=== PATIENT | female | born 1965 | race Caucasian/White ===

== ENCOUNTER → 2016-10-11 | Outpatient (CLI) | payer MEDICAID ==
[~2016-10-11] MED LIST: AMLO10TA2 PO; ESTR0.62 VAGINAL; GABA100C4 PO; HYDR25TA5 PO; OMEP40CA2 PO; RANI150T PO
[2016-10-11 12:46] LABS: AUTOMATED NEUTROPHIL # 4.9 TH/MM3 (1.8-7.7); BASOPHIL % 0.3 % (0.0-2.0); EOSINOPHIL # 0.3 TH/MM3 (0-0.4); EOSINOPHIL % 3.6 % (0.0-4.0); HEMATOCRIT 37.5 % (35.0-46.0); HEMO FLAGS DIFF FINAL; LYMPH % 21.2 % (9.0-44.0); LYMPHOCYTE # 1.5 TH/MM3 (1.0-4.8); MEAN CELL VOLUME 85.8 FL (80.0-100.0); MEAN CORPUSCULAR HEMOGLOBIN 28.9 PG (27.0-34.0); MEAN CORPUSCULAR HGB CONC 33.7 % (32.0-36.0); MONO % 6.1 % (0.0-8.0); NEUT % 68.8 % (16.0-70.0); PLATELET COUNT 270 TH/MM3 (150-450); RED BLOOD COUNT 4.37 MIL/MM3 (4.00-5.30); RED CELL DISTRIBUTION WIDTH 14.1 % (11.6-17.2); WHITE BLOOD COUNT 7.1 TH/MM3 (4.0-11.0)
[2016-10-11 13:00] LABS: BACTERIA, URINE OCC /hpf; BLOOD, URINE TRACE (NEG); COMMENT (UR) CULT NOT INDICATED; CULTURE IF INDICATED CULT NOT INDICATED; GLUCOSE,URINE NEG (NEG); KETONE, URINE NEG (NEG); MUCUS URINE FEW /lpf (OCC); NITRITE,URINE NEG (NEG); PH, URINE 6.5 (5.0-8.5); SQUAMOUS EPITHELIAL CELL URINE 1 /hpf (0-5); URINE COLOR LIGHT-YELLOW (YELLW/STRAW)
[2016-10-11 13:10] LABS: ANION GAP 6 MEQ/L (5-15); AST (GOT) 20 U/L (15-37); BICARBONATE 31.6 MEQ/L (21.0-32.0); BLOOD UREA NITROGEN 10 MG/DL (7-18); CHLORIDE 102 MEQ/L (98-107); GLOMERULAR FILTRATION RATE 75 ML/MIN (>89); GLUCOSE,FASTING 95 MG/DL (74-99); POTASSIUM 3.7 MEQ/L (3.5-5.1); SODIUM (NA) 140 MEQ/L (136-145)
[2016-10-11 13:21] LABS: ALKALINE PHOSPHATASE 106 U/L (45-117); ALT (GPT) 33 U/L (10-53); TOTAL BILIRUBIN ADULT 0.3 MG/DL (0.2-1.0)
== END ==
LOC: CPRE 11:21
PROVIDERS: ATTEND Obstetrics & Gynecology Gynecology
DX: Z01.812 Encounter for preprocedural laboratory examination (principal); N81.6 Rectocele; N81.89 Other female genital prolapse
CPT/HCPCS: 36415; 80053; 81001; 85025

== ENCOUNTER → 2016-10-17 | Day surgery (SDC) | payer MEDICAID ==
--- NOTE | 2016-10-11 14:05 | MH ---
cc: LELAND SHUKLA MD DATE OF ADMISSION: 10/17/2016 1965 REASON FOR ADMISSION Scheduled for admission on October 17 for pelvic repair. HISTORY OF PRESENT ILLNESS The patient is a 52-year-old female, 4, para 2 with issues with pelvic organ prolapse. She has had a prior hysterectomy and BSO. She has been using vaginal estrogen. She has not had much success with pessary and wants to proceed with surgical treatment. The patient has issues with pelvic floor weakness. She has had a negative MRI. Her physical exam is consistent with stage II pelvic organ prolapse with posterior compartment predominant and loss of perineal body. PAST MEDICAL HISTORY The patient's medical history is negative for heart, lung, liver disease. She does have: 1. Hypertension. 2. Gastroesophageal reflux disease. MEDICATION 1. Hydrochlorothiazide 25 mg one p.o. daily. 2. Amlodipine 10 mg daily. 3. Omeprazole 40 mg daily. 4. Zantac 150 mg daily. ALLERGIES AMPICILLIN, BACTRIM, CIPRO. She has used cephalosporins in the past without difficulty. FAMILY HISTORY Noncontributory. OBSTETRICAL HISTORY Two vaginal deliveries. GYNECOLOGIC HISTORY Notable for hysterectomy for benign condition. SOCIAL HISTORY She does not smoke cigarettes, use alcohol or drugs. She has good social support. REVIEW OF SYSTEMS As above. No chest pain, orthopnea, PND. No nausea, vomiting or chills. No vaginal bleeding or discharge. No incontinence issues. She does have some pelvic floor weakness and noted some difficulty with stairs but otherwise no significant neurologic issues. Remainder of 14-point review negative. PHYSICAL EXAMINATION VITAL SIGNS: She is afebrile. Vital signs stable. Blood pressure is 120/70, height is 5 feet 3 inches, weight 192, BMI is 34. GENERAL: Patient is alert and oriented, in no acute distress. No sign of cognitive dysfunction or depression. HEENT: Within normal limits. NECK: Supple. No JVD. CHEST: Clear. HEART: Regular rate and rhythm. ABDOMEN: Soft, nontender. No hepatosplenomegaly. No CVA tenderness. PELVIC: Exam in the office shows POP-Q score: Ap is 0. Perineal body is 1. Further exam under anesthesia. EXTREMITIES: Normal skin without rashes. NEURO EXAM: Nonfocal. No DVT signs. ASSESSMENT Patient with posterior compartment prolapse, loss of perineal body, symptomatology mainly of pelvic pressure and discomfort. The patient and I discussed at length the options for management and treatment. She is aware of the risks, benefits and alternatives to the planned procedure including damage to surrounding organs, bleeding, infection, failure of repair. The patient also aware of issues with potential dyspareunia and other conditions that germane to her surgery. She is aware that the exam under anesthesia may be different than what we see in the office and she consents to any additional repair that we deem necessary. At this point we will use Ancef 2 grams IV antibiotic prophylaxis. DVT prophylaxis with sequential compression device. Anticipate outpatient procedure. MD SHERMAN Oconnor/RCIO /1:31 PM /1:42 PM
[~2016-10-17] VITALS: Ht 160 cm; Wt 91.4 kg
[~2016-10-17] MED LIST changes: +*morphine SULFATE 8 MG/ML PERIprocedure ONLY ONE; +CHLORHEXIDINE GLUCONATE 2 % 1 PACK (2 CLOTHS) TOPICAL PRN; +ESTROGENS CONJUGATED VAG CREA 15 APPL/30 GM TUBE ONE; +FAMOTIDINE 20 MG/2 ML VIAL ONE; +FLUORESCEIN SOD 10% SOLN 500 MG/5 ML AMP ONE; +INSULIN HUMAN REGULAR 1,000 UNITS/10 ML VIAL SQ PRN; +KETOROLAC TROMETHAMINE 10 MG TAB PO PRN; +KETOROLAC TROMETHAMINE 30 MG/ML (IVP) VIAL IV PUSH PRN; +KETOROLAC TROMETHAMINE 60 MG/2 ML (IM) VIAL IM ONE; +LACTATED RINGER'S 1000 ML IV PRN; +LIDOCAINE 1%/EPINEPHrine 1:100,000 SOLN 50 ML VIAL ONE; +METOPROLOL TARTRATE 25 MG TAB PO PRN; +MIDAZOLAM HCL 2 MG/2 ML VIAL ONE; +ONDANSETRON HCL 4 MG/2 ML VIAL IV ONE; +ONDANSETRON HCL 4 MG/2 ML VIAL IV PUSH ONE; +POVIDONE IODINE 5% (ANTISEPSIS KIT) 4 APPLICATIONS EACH NARE PRN; +PROPOFOL 200 MG/20 ML AMP IV ONE; +SODIUM CHLORID 0.9% 500 ML IV PRN; +ceFAZolin 2 GM PREMIX 50 ML ONE
[2016-10-17 06:52] VITALS: BP 144/83; PULSE 70; RESP 18; TEMP 98; O2SAT 97
--- NOTE | 2016-10-17 09:44 | MP ---
cc: LELAND SHUKLA MD DATE OF SURGERY 10/17/2016 PREOPERATIVE DIAGNOSES Rectocele with loss of perineal body. 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 SURGEON Leland Shukla MD ANESTHESIA General endotracheal BLOOD LOSS 100 cc PROCEDURE 1. Posterior repair with enterocele 2. Perineoplasty 3. External sphincteroplasty end-to-end technique [employer] [facility] staff x2 URINE OUTPUT 200 cc FINDINGS External genitalia normal pop Q POP-Q score: Aa is -2, Ap is +1. Point C is -8. Total vaginal length is 10. Genital hiatus is 8. Perineal body is 1. Following repair, POP-Q score: Ap is -3, genital hiatus is 5. Perineal body is 5. Rectal exam normal following repair. SPECIMENS None COMPLICATIONS None DISPOSITION To recovery room stable. COUNTS Needle and sponge counts correct. DRAINS Calderon catheter ANTIBIOTIC PROPHYLAXIS Ancef two grams, DVT prophylaxis sequential compression device. TIME OUT PROCEDURE Per protocol SUMMARY OF INDICATION AND PROCEDURE Patient with symptomatic pelvic organ prolapse posterior compartment with diminution of perineal body. Patient taken to the operating room theater, identified, prepped and draped in a fashion appropriate for the planned procedure. She was in the dorsolithotomy position with careful attention paid to placement of legs in the stirrups to avoid undue stress to sensitive neurovascular structures. The above findings noted. Neurovascular integrity documented. Calderon catheter was placed. The most striking finding of the exam was significant pelvic organ prolapse posterior compartment and remarkably diminished perineal body with apparent external sphincter compromise from 11 o'clock to 2 o'clock position. The epinephrine/lidocaine was infiltrated with a modified pudendal block and also infiltrated under the vaginal mucosa. A midline incision was made from the hymenal ring to the apex of the vagina. The patient had large venous sinuses and had approximately four times more blood loss than we normally would see on a case like this requiring several [id number] sutures to render the bleeding sinuses hemostatic. We did proceed with rectocele by imbricating the muscularis of the rectum. Enterocele was rendered closed with delayed absorbable sutures. The vaginal mucosa was trimmed. The vaginal mucosa was closed with a running Vicryl suture and hemostatic matrix was used to obviate the need for packing. Perineoplasty was performed in standard fashion and the sphincter repair was performed with delayed absorbable suture end-to-end technique. This increased the perineal body from one to approximately five. The skin closure was done with a 3-0 Vicryl subcuticular stitch. The patient tolerated well and was returned to the Recovery Room in stable condition. MD SHERMAN Oconnor/FRANCISCO /9:25 AM /9:32 AM
[2016-10-17 10:48] VITALS: BP 121/68; PULSE 68; RESP 18; TEMP 97.8; O2SAT 97
== END | disposition home or self-care (01) ==
LOC: HSDC 05:10 → EDUNIT# 08:30
PROVIDERS: ATTEND Obstetrics & Gynecology Gynecology
DX: N99.3 Prolapse of vaginal vault after hysterectomy (principal); I10 Essential (primary) hypertension; K21.9 Gastro-esophageal reflux disease without esophagitis
CPT/HCPCS: 00942; 57250; J0690; J1885; J2250; J2270; J2405; J3010; J7120